=== PATIENT | male | born 1985 | race Caucasian/White ===

== ENCOUNTER 2018-03-18 20:14 | Emergency (ER) | payer MEDICAID ==
[2018-03-18] MEDS ORDERED: Tetracaine HCl/PF 0.5% 4 ML Bottle EYERT ONE (21:31)
--- NOTE | 2018-03-18 22:24 | EDM.PDOC ---
ED HPI GENERAL MEDICAL PROBLEM - General Chief Complaint: Eye Problems Stated Complaint: SOMETHING IN EYE Time Seen by Provider: 03/18/18 21:30 Source of Information: Reports: Patient History Limitations: Reports: No Limitations - History of Present Illness INITIAL COMMENTS - FREE TEXT/NARRATIVE: right eye; this is a 33 year old male present to ER with family. concerns of "something" in the right eye, can feel a splinter in the eye. has working around the house inside and outside, not sure when this happened. no other concerns. 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 Treatments Right Eye Pain Score (Numeric/FACES): 6 - Related Data Allergies Allergy/AdvReac Type Severity Reaction Status Date / Time No Known Allergies Allergy Verified 03/18/18 21:29 Home Meds: Home Meds NK [No Known Home Meds] 03/18/18 [History] Past Medical History - Past Health History Medical/Surgical History: Denies Medical/Surgical History - Infectious Disease History Infectious Disease History: Reports: Chicken Pox Social & Family History - Family History Family Medical History: Noncontributory - Tobacco Use Smoking Status *Q: Current Every Day Smoker Years of Tobacco use: 20 Packs/Tins Daily: 0.2 - Caffeine Use Caffeine Use: Reports: Coffee, Energy Drinks, Soda - Alcohol Use Days Per Week of Alcohol Use: 7 Number of Drinks Per Day: 1 Total Drinks Per Week: 7 - Recreational Drug Use Recreational Drug Use: No ED ROS GENERAL - Review of Systems Review Of Systems: See Below Constitutional: Reports: No Symptoms HEENT: Reports: Eye Pain (right) Respiratory: Reports: No Symptoms Cardiovascular: Reports: No Symptoms Skin: Reports: No Symptoms Neurological: Reports: No Symptoms Psychiatric: Reports: No Symptoms Hematologic/Lymphatic: Reports: No Symptoms Immunologic: Reports: No Symptoms ED EXAM GENERAL W FULL EYE - Physical Exam Exam: See Below Exam Limited By: No Limitations General Appearance: Alert, WD/WN, Mild Distress Eye Exam: Right Eye: Corneal Abrasion, Foreign Body, Bilateral Eye: EOMI, PERRL Eyelids: Right: Edema (right lid with mild edema), Erythema, Foreign Body ( steel sliver), Lid Everted for Exam, Left: Normal Appearance Conjunctiva & Sclera: Right: Foreign Body, Injected Cornea Exam: Right: Corneal Abrasion, Foreign Body, Bilateral: Normal Appearance Extraocular Movements: Bilateral: Intact Pupils: Normal Accommodation Pupillary Size: Bilateral: 5 mm Pupillary Reaction: Bilateral: Brisk Ears: Normal External Exam Nose: Normal Inspection Throat/Mouth: Normal Inspection Head: Atraumatic, Normocephalic Neck: Normal Inspection ED EYE w/ Add Procedure - Eye Procedure Alcaine Drops Administered: Yes Eye FB Removal: Removal w/ Needle Eye Irrigated w/ Saline (ccs): 20 Antibiotic Oinment/Drps Admin: Right Eye Course - Vital Signs Last Recorded V/S: Last Vital Signs Temp 36.0 C 03/18/18 21:31 Pulse 87 03/18/18 21:31 Resp 16 03/18/18 21:31 BP 125/85 03/18/18 21:31 Pulse Ox 99 03/18/18 21:31 - Orders/Labs/Meds Meds: Medications Discontinued Medications Generic Name Dose Route Start Last Admin Trade Name Shaq PRN Reason Stop Dose Admin Tetracaine HCl 0 ml 03/18/18 21:31 03/18/18 21:38 Tetracaine 0.5% Steri-Unit Lavern EYERT 03/18/18 21:32 5 drop ASDIRECTED ONE Administration Departure - Departure Time of Disposition: 22:50 Disposition: Home, Self-Care 01 Condition: Good Clinical Impression: Foreign body in cornea, right eye, initial encounter Corneal abrasion Qualifiers: Encounter type: initial encounter Laterality: right Qualified Code(s): S05.01XA - Injury of conjunctiva and corneal abrasion without foreign body, right eye, initial encounter - Discharge Information Instructions: Eye Foreign Body, [id number], Corneal Abrasion, [id number] Referrals: PCP,None [Primary Care Provider] - Forms: ED Department Discharge Care Plan Goals: Corneal Abrasion right eye foreign body to right eye, removed -Erythromycin eye ointment, instill to eye three times a day for 5 days -follow up with Eye Doctor on Tuesday for recheck -return to clinic, er or urgent care if has any vision changes, increased pain or not improved. - Problem List & Annotations (1) Corneal abrasion SNOMED Code(s): 14490424 Code(s): S05.00XA - INJ CONJUNCTIVA AND CORNEAL ABRASION W/O FB, UNSP EYE, INIT Status: Acute Priority: High Qualifiers: Encounter type: initial encounter Laterality: right Qualified Code(s): S05.01XA - Injury of conjunctiva and corneal abrasion without foreign body, right eye, initial encounter (2) Foreign body in cornea, right eye, initial encounter SNOMED Code(s): 57229876351452893 Code(s): T15.01XA - FOREIGN BODY IN CORNEA, RIGHT EYE, INITIAL ENCOUNTER Status: Acute Priority: High - Problem List Review Problem List Initiated/Reviewed/Updated: Yes - Assessment/Plan Plan: Corneal Abrasion right eye foreign body to right eye, removed -Erythromycin eye ointment, instill to eye three times a day for 5 days -follow up with Eye Doctor on Tuesday for recheck -return to clinic, er or urgent care if has any vision changes, increased pain or not improved.
== END 2018-03-18 22:57 | disposition home or self-care (01) ==
LOC: JP.ED 20:14
DX: T15.01XA Foreign body in cornea, right eye, initial encounter (principal); F17.210 Nicotine dependence, cigarettes, uncomplicated
CPT/HCPCS: 65220; 99283; A9270

== ENCOUNTER 2022-01-02 23:54 | Emergency (ER) | payer MEDICAID ==
[2022-01-03] MEDS ORDERED: Proparacaine 0.5% Ophth Soln 15 ML Bottle EYEBOTH ONE (00:01)
[2022-01-03] MEDS ORDERED: Erythromycin Base 0.5% Ophth Oint 1 GM Tube EYEBOTH ONE (00:02)
== END 2022-01-03 01:16 | disposition home or self-care (01) ==
LOC: JP.ED 23:54
DX: T54.2X1A Toxic effect of corrosive acids and acid-like substances, accidental (unintentional), initial encounter (principal); H10.213 Acute toxic conjunctivitis, bilateral; Z91.030 Bee allergy status
CPT/HCPCS: 99282; 99283; A9270-GY